=== PATIENT | male | born 1965 | race Caucasian/White ===

== ENCOUNTER 2020-10-01 08:21 | Observation (INO) | payer OTHER, SELFPAY ==
[2020-10-01] VITALS (15 sets, daily range): BP systolic 166–237; BP diastolic 83–108; PULSE 67–85; RESP 14–20; TEMP 36.4–36.9; O2SAT 94–100
--- NOTE | ~2020-10-01 | XR_ITS ---
EXAMINATION: XR chest 2V DATE: 10/01/2020 09:03 INDICATION: Chest tightness. TECHNIQUE: Frontal and lateral views of the chest were obtained. COMPARISON: Chest 2 views 10/26/2007 FINDINGS: The chest demonstrates clear lungs without pneumonia, pleural effusion, or pneumothorax. Th e heart size is normal. IMPRESSION: 1. No acute cardiopulmonary disease. Reviewed, dictated and finalized at location A.
--- NOTE | 2020-10-01 08:25 | ECG_ITS ---
Measurements Intervals [place] Rate: 89 P: 50 DE: 174 QRS: 55 QRSD: 98 T: 11 QT: 349 QTc: 425 Interpretive Statements SINUS RHYTHM POSSIBLE LEFT ATRIAL ENLARGEMENT CONSIDER INFERIOR INFARCT, AGE INDETERMINATE BASELINE ARTIFACT- I, II, III, AVR, AVL, AVF, V1-V6 ABNORMAL ECG Electronically Signed On 10-01-2020 8:41:03 CDT by Alex Richards D.O.
[2020-10-01 08:44] LABS: Basophils Percent Auto 0.5 % (0.2-1.2); Eosinophils Absolute Auto 0.2 K/mm3 (0-0.3); Eosinophils Percent Auto 1.9 % (0-4.4); Hematocrit 52.5 % (42.0-52.0); Hemoglobin 17.9 g/dL (14.0-18.0); Immature Granulocyte Absolute 0.04 K/mm3 (0.00-0.031); Immature Granulocyte Percent A 0.5 % (0-0.5); Lymphocytes Absolute Auto 2.56 K/mm3 (0.9-3.2); Mean Corpuscular HGB Conc 34.1 g/dl (32-36); Mean Corpuscular Hemoglobin 30.3 pg (26-34); Mean Platelet Volume 12.2 fl (7.4-10.4); Monocytes Absolute Auto 0.7 K/mm3 (0.1-0.6); Monocytes Percent Auto 8.3 % (2.6-8.5); Neutrophils Percent Auto 58.8 % (45.5-73.1); Platelet Count Result 88 k/mm3 (150-375); Red Cell Distribution Width 13.6 % (11.5-14.5); White Blood Count 8.5 K/mm3 (4.5-10.0)
[2020-10-01] MEDS: ASPIRIN 81 MG CHEWABLE TABLET 324 MG PO (08:49)
[2020-10-01 08:56] LABS: INR 1.1; Prothrombin Time 14.3 Seconds (11.1-14.7)
[2020-10-01 08:57] LABS: Anion Gap 12 mmol/L (8-16); Blood Urea Nitrogen 16 mg/dL (9-20); Calcium 9.8 mg/dL (8.4-10.2); Carbon Dioxide 25 mmol/L (22-30); Chloride 105 mmol/L (98-107); Estimated CRCL calculation 106 ml/min; Estimated Glomerular Filt Rate > 60; Glucose 172 mg/dL (75-110); Partial Thromboplastin Time 24.8 SECONDS (22.3-36.8); Potassium 4.1 mmol/L (3.4-5.0); Sodium 142 mmol/L (137-145)
[2020-10-01 09:08] LABS: Troponin I 0.016 ng/mL (0.000-0.034)
[2020-10-01] MEDS: hydrALAZINE HCL 20 MG/ML VIAL 10 MG IV PUSH ×3 (09:13→19:47)
--- NOTE | 2020-10-01 09:33 | ED.CHESTPAIN ---
HPI - Chest Pain General Chief Complaint: Chest Pain Stated Complaint: tightness in chest Time Seen by Provider: 10/01/20 08:26 History of Present Illness HPI narrative: Patient is a 55-year-old male with history of coronary artery disease who does not see a doctor that presents the ER with chest pain. Recurrent multiple times over the last 5 days. Last episode was 2 days ago. Reports when he physically exerts himself he starts having central chest pressure. If he stops what he is doing it will only last for 15 additional minutes. Since his last episode he has just been laying around at home in order to prevent recurrence. Denies fevers or chills or sweats. No shortness of breath. He underwent coronary stenting 8 years ago at [facility]. Related Data Home Medications Medication Instructions Recorded Confirmed No Home Medications 10/01/20 10/01/20 Allergies Allergy/AdvReac Type Severity Reaction Status Date / Time No Known Allergies Allergy Verified 10/01/20 08:43 Review of Systems Review of Systems: All systems reviewed & are unremarkable except as noted in HPI and below Constitutional: Constitutional: Denies chills, Denies fever(s) and Denies weakness Cardiovascular: Cardiovascular: Reports chest pain, Denies rapid heart rate and Denies radiating jaw, neck or arm pain Respiratory: Respiratory: Denies cough, Denies dyspnea and Denies wheezing Gastrointestinal: Gastrointestinal: Denies abdominal pain, Denies nausea and Denies vomiting PMF Past Medical History Medical History (Updated 10/01/20 @ 19:01 by Breezy Jasso MD) Coronary artery disease Hypertension Surgical History Surgical History (Updated 10/01/20 @ 09:35 by Breezy Jasso MD) History of percutaneous coronary intervention Family History Family History (Updated 10/01/20 @ 11:12 by Bebeto Gonzalez RN) Father Hypertension Mother Hypertension Social History Social History (Updated 10/01/20 @ 12:48 by Jovi Hammond MD) Social History: Smokes 1 pack a day past 30 years. He smokes marijuana as well. He denies IV drug use. He drinks 24 alcoholic drinks mostly on the weekends for most weekends. Lives at home with his and 3 children. He is a full code He nominates his to be the individual who would make medical decisions for him if he is unable. Smoking packs per day: 1 Smoking cigarettes per day: 20.0 Years smoked: 20 Smoking pack-years: 20.00 Smoking status: Heavy tobacco smoker Tobacco type: cigarettes Alcohol intake: current Drinks per week: 20 Substance use: current Substance use type: marijuana Gender identity (if verbalized by the patient): Male Spiritual care concerns: No Exam Narrative: Exam Narrative: GENERAL: Well-appearing, well-nourished, and in no acute distress. HEAD: Normocephalic, atraumatic. EYES: PERRL and EOMI. ENT: Mucous membranes moist. CHEST: Clear to auscultation. No respiratory distress. HEART: Regular rate and rhythm. Normal peripheral pulses. ABDOMEN: Soft, nontender, nondistended. EXTREMITIES: Normal range of motion. No edema. SKIN: Warm, dry, no rash. NEURO: Alert and oriented x3. PSYCH: Normal mood and affect. Course Course Emergency Course: Admit to the hospitalist service with cardiology consultation. Concern for angina as well as uncontrolled hypertension. Patient resting comfortably at this time. Vital Signs Vital signs: Vital Signs Temperature 98 F 10/01/20 08:36 Pulse Rate 83 10/01/20 08:36 Respiratory Rate 15 10/01/20 08:36 Blood Pressure 237/108 H 10/01/20 08:36 Pulse Oximetry 98 10/01/20 08:36 Temperature 97.6 F 10/01/20 16:00 Pulse Rate 79 10/01/20 18:00 Respiratory Rate 20 10/01/20 16:00 Blood Pressure 172/92 H 10/01/20 16:00 Pulse Oximetry 100 10/01/20 16:00 MDM - Chest Pain Lab Data Result diagrams: 10/01/20 08:37 10/01/20 08:37 Labs: Lab Results
[2020-10-01] MEDS: METOPROLOL TARTRATE 25 MG TABLET PO ×2 (10:03→21:18)
--- NOTE | 2020-10-01 11:00 | PC.NURSE ---
notified of patient's BP on arrival to ICU
--- NOTE | 2020-10-01 11:15 | ADMGEN ---
This patient, Daryl Stevens, was admitted to Intensive Care Unit-5. Patient/family oriented to hospital policies and general routines including ID bracelet, bed and alarms, visiting hours, pain management, procedures, bathroom and other care routines, personal items, smoking policy, room service/diet, and visiting hours. Information on how to activate the Rapid Response Team has been discussed. Patient/Family are encouraged to report perceived risks to care and to ask questions if they do not understand what they are told or what they should do.
--- NOTE | 2020-10-01 11:39 | PM.IMHP ---
H&P: HPI History of Present Illness Date/Time: PATIENT ADMITTED UNDER OBSERVATION 10/01/20 11:39 Chief Complaint: Chest pain Narrative: 55yo male with untreated HTN and CAD presents to ED with complaints of chest pain. Patient states a couple of weeks ago while at work he developed chest pain. He was out working in the heat. He works with concrete as a labor. After resting for short period time, he was able to return to work without recurrence of the pain. There was no shortness of breath or nausea. He has been working since that time and has not had recurrence of the chest pain. About 5 days ago patient the recurrence of the chest pain that was very similar to the original event. He was working on his camper at that time. Again he took a break and then return to working on a camper without recurrence of the discomfort. Chest pain recurred again 2 days ago with similar presentation. He describes the chest pain as a tightness across his chest along the middle of his chest lasting about 15 minutes. There is no radiation of the pain. No shortness of breath or nausea. The chest pain that occurred over the past few days was was not as severe as it was when he was working. He has a history of hypertension that is longstanding. Has a history of coronary disease with 2 stents placed 8-10 years ago. He was on blood thinners for few months after the stents placed but he stopped them on his own accord because of bruising and bleeding. He stopped the antihypertensive medications 5 years ago mostly due to the fact he did not want take any medications any longer. There were no side effects or other issues with medications. He does not recall the names of the medications. Also of note patient had COVID 2 months ago. He had anosmia and dysgeusia but no other significant symptoms otherwise per patient. He has not been vaccinated. He last saw his physician 8 years ago. He does not check his blood pressure at home. He denies any fever or chills. He has been having blurry vision in the morning over the past few weeks. his last eye exam was 2 years ago. He does not have glaucoma or cataracts. He does snore but denies that he has apneic spells. Denies any palpitations. No weight changes. No numbness, tingling or weakness in his extremities. He denies any GI or symptoms. He presented to the emergency room because he was concerned about the chest pain over the past few days but denies having chest pain on the day of presentation. In the emergency room, his blood pressure was 237/108. He was given 1 dose of IV hydralazine and 1 dose of oral metoprolol. His troponin was normal. [place] platelet count [place] [address]. No baseline to compare. Glucose was 172 otherwise basic metabolic panel normal. EKG showed normal sinus rhythm with nonspecific ST T wave changes with evidence of LVH. Chest x-ray was clear. Patient was admitted for further care. Review of Systems Review of Systems: All systems reviewed & are unremarkable except as noted in HPI and below PMFSH Past Medical History Medical History (Updated 10/01/20 @ 19:01 by Breezy Jasso MD) Coronary artery disease Hypertension Surgical History Surgical History (Updated 10/01/20 @ 09:35 by Breezy Jasso MD) History of percutaneous coronary intervention Family History Family History (Updated 10/01/20 @ 11:12 by Bebeto Gonzalez RN) Father Hypertension Mother Hypertension Social History Social History (Updated 10/01/20 @ 12:48 by Jovi Hammond MD) Social History: Smokes 1 pack a day past 30 years. He smokes marijuana as well. He denies IV drug use. He drinks 24 alcoholic drinks mostly on the weekends for most weekends. Lives at home with his and 3 children. He is a full code He nominates his to be the individual who would make medical decisions for him if he is unable. Smoking packs per day: 1 Smoking cigarettes per day: 20.0 Years smoked: 20
[2020-10-01 11:53] LABS: Troponin I 0.017 ng/mL (0.000-0.034)
--- NOTE | 2020-10-01 13:09 | PC.NURSE ---
notified of current BP.
[2020-10-01] MEDS: SODIUM CHLORIDE 0.9% IV 1,000 ML 100 ML IV CONT (14:11)
[2020-10-01 14:44] LABS: Hemoglobin A1C 6.2 % (<5.7)
[2020-10-01 14:50] LABS: Alanine Aminotransferase 40 U/L (4-50); Albumin Level 4.5 g/dL (3.5-5.1); Alkaline Phosphatase 67 U/L (38-126); Aspartate Amino Transferase 32 U/L (17-59); Bilirubin,Total 0.8 mg/dL (0.2-1.3)
[2020-10-01 14:59] LABS: Troponin I 0.021 ng/mL (0.000-0.034)
[2020-10-01] MEDS: FOLIC ACID 1 MG TABLET PO (15:19)
[2020-10-01] MEDS: THIAMINE HCL 200 MG/2 ML VIAL 100 MG IV PUSH (15:19)
[2020-10-01] MEDS: lisinopriL 20 MG TABLET PO (15:19)
[2020-10-01 16:02] LABS: Folic Acid > 20.0 ng/mL (2.76->20)
[2020-10-01 16:09] LABS: Glucose Point of Care 107 mg/dl (65-105)
--- NOTE | 2020-10-01 16:10 | PC.NURSE ---
Received report from CAESAR Moyer
[2020-10-01 21:19] LABS: Glucose Point of Care 101 mg/dl (65-105)
[2020-10-02] VITALS (11 sets, daily range): BP systolic 147–194; BP diastolic 76–101; PULSE 63–77; RESP 17–19; TEMP 36.2–37; O2SAT 94–100
--- NOTE | 2020-10-02 | ECHO_ITS ---
Patient Info Name: Daryl Stevens Age: 55 years : 1965 Gender: Male Ht: 69 in Wt: 193 lbs BSA: 2.08 m2 HR: 72 bpm BP: 178 / 96 mmHg Heart Rhythm: Sinus Rhythm Technical Quality: Good Exam Date: 10/02/2020 12:08 PM Exam Location: [facility] Pulmonary Exam Room: ICU5 Patient Status: Outpatient Admit Date: 10/01/2020 Staff Ordering Physician: Jovi Hammond MD Tube Depatcher: Lavonne Silva RDCS Attending Provider: Jovi Hammond MD Exam Type: CA echo doppler color flow Study Info Indications - CHEST PAIN Complete two-dimensional, color flow and Doppler transthoracic echocardiogram is performed. Summary 1. Complete two-dimensional, color flow and Doppler transthoracic echocardiogram is performed. 2. Left ventricular systolic function is normal, estimated at 60-65%. 3. There is moderately increased left ventricular wall thickness. 4. The left ventricular diastolic function is grade I diastolic dysfunction. 5. Right atrial chamber dimension is mildly enlarged. 6. There is no aortic valve stenosis. 7. There is trace mitral valve regurgitation. 8. There is trace tricuspid valve regurgitation. 9. No pulmonary hypertension, estimated pulmonary arterial systolic pressure is 23 mmHg. Left Ventricle Left ventricular chamber dimension is normal. Left ventricular systolic function is normal, estimated at 60-65%. There is moderately increased left ventricular wall thickness. The left ventricular diastolic function is grade I diastolic dysfunction. Right Ventricle Right ventricular chamber dimension is normal. Right ventricular systolic function is normal. Left Atria Left atrial chamber dimension is normal. Right Atria Right atrial chamber dimension is mildly enlarged. Aortic Valve The aortic valve is trileaflet. There is no aortic valve stenosis. There is trace aortic valve regurgitation. Pulmonic Valve The pulmonic valve is not well visualized. Mitral Valve The mitral valve has normal leaflets. There is trace mitral valve regurgitation. Tricuspid Valve The tricuspid valve leaflets are normal. There is trace tricuspid valve regurgitation. No pulmonary hypertension, estimated pulmonary arterial systolic pressure is 23 mmHg. Pericardium/Pleural The pericardium appears normal. There is trivial pericardial effusion. Inferior Vena Cava Normal inferior vena cava with <50% collapse upon inspiration consistent with elevated right atrial pressure, 10 mmHg. Aorta The aortic root size at the sinus of Valsalva is normal. There is mild aortic atherosclerosis. Left Ventricular Outflow Tract Name Value Normal LVOT 2D LVOT Diameter 2.1 cm LVOT Doppler LVOT Peak Gradient 4 mmHg LVOT Mean Gradient 3 mmHg LVOT VTI 24 cm LVOT VTI/AV VTI Ratio 0.9 LVOT Stroke Volume 80 ml LVOT CO 15.8 l/min LVOT CI 7.6 l/min/m2 Pulmonic Valve
[2020-10-02] MEDS: SODIUM CHLORIDE 0.9% IV 1,000 ML 100 ML IV CONT (00:27)
[2020-10-02] MEDS: hydrALAZINE HCL 20 MG/ML VIAL 10 MG IV PUSH (01:53)
[2020-10-02 06:08] LABS: Basophils Percent Auto 0.2 % (0.2-1.2); Eosinophils Absolute Auto 0.1 K/mm3 (0-0.3); Eosinophils Percent Auto 1.3 % (0-4.4); Hematocrit 52.8 % (42.0-52.0); Hemoglobin 17.8 g/dL (14.0-18.0); Immature Granulocyte Absolute 0.06 K/mm3 (0.00-0.031); Immature Granulocyte Percent A 0.5 % (0-0.5); Immature Platelet Fraction Pct 9.4 % (0.9-11.2); Lymphocytes Percent Auto 22.5 % (18.3-44.2); Mean Corpuscular HGB Conc 33.7 g/dl (32-36); Monocytes Absolute Auto 0.8 K/mm3 (0.1-0.6); Monocytes Percent Auto 7.1 % (2.6-8.5); Neutrophils Absolute Auto 7.6 K/mm3 (1.3-6.7); Neutrophils Percent Auto 68.4 % (45.5-73.1); Platelet Count Result 81 k/mm3 (150-375); Red Blood Count 5.93 M/mm3 (4.6-6.20); White Blood Count 11.1 K/mm3 (4.5-10.0)
[2020-10-02 06:22] LABS: Alanine Aminotransferase 38 U/L (4-50); Albumin Level 4.2 g/dL (3.5-5.1); Alkaline Phosphatase 68 U/L (38-126); Anion Gap 10 mmol/L (8-16); Aspartate Amino Transferase 32 U/L (17-59); Bilirubin,Total 1.3 mg/dL (0.2-1.3); Blood Urea Nitrogen 14 mg/dL (9-20); Calcium 9.1 mg/dL (8.4-10.2); Carbon Dioxide 21 mmol/L (22-30); Chloride 107 mmol/L (98-107); Cholesterol 244 mg/dL (0-200); Estimated CRCL calculation 93 ml/min; Estimated Glomerular Filt Rate > 60; Glucose 126 mg/dL (75-110); HDL Direct 39 mg/dL; Sodium 138 mmol/L (137-145); Triglycerides 136 mg/dL (<150)
[2020-10-02 06:27] LABS: Troponin I 0.022 ng/mL (0.000-0.034)
[2020-10-02 06:35] LABS: LDL Cholesterol Direct 152 mg/dL
[2020-10-02 07:46] LABS: Glucose Point of Care 129 mg/dl (65-105)
--- NOTE | 2020-10-02 10:40 | PC.NURSE ---
Dr. Hammond at bedside. Stress test cancelled per patient request. Metoprolol dose changed, ECHO to be completed today prior to patient discharge. discharged.
[2020-10-02] MEDS: METOPROLOL SUCCINATE EXT REL 50 MG TABCR PO (10:58)
[2020-10-02] MEDS: lisinopriL 20 MG TABLET PO (10:58)
[2020-10-02] MEDS: FOLIC ACID 1 MG TABLET PO (10:58)
[2020-10-02] MEDS: THIAMINE HCL 200 MG/2 ML VIAL 100 MG IV PUSH (11:00)
[2020-10-02 11:54] LABS: Glucose Point of Care 105 mg/dl (65-105)
--- NOTE | 2020-10-02 13:09 | PM.DS ---
DS: Admitting Diagnosis Admitting Diagnosis Admitting Diagnosis: Chest pain DS: Discharge Diagnosis Discharge Diagnosis (1) Hypertensive urgency: Code(s): I16.0 - Hypertensive urgency Status: Acute (2) Coronary artery disease: Code(s): I25.10 - Atherosclerotic heart disease of [place] coronary artery without angina pectoris Status: Inactive (3) Chest pain: Code(s): R07.9 - Chest pain, unspecified Status: Acute (4) Alcohol abuse: Code(s): F10.10 - Alcohol abuse, uncomplicated Status: Acute (5) Tobacco abuse: Code(s): Z72.0 - Tobacco use Status: Acute (6) Hyperglycemia: Code(s): R73.9 - Hyperglycemia, unspecified Status: Acute (7) Thrombocytopenia: Code(s): D69.6 - Thrombocytopenia, unspecified Status: Acute DS: Summary Hospital Course Reason for hospitalization: 55yo male with untreated HTN and CAD presents to ED with complaints of chest pain. Please see H&P for details. Hospital Course: Patient presents to the ED with complaints of chest pain. In the emergency room, his blood pressure was 237/108. He was given 1 dose of IV hydralazine and 1 dose of oral metoprolol. His troponin was normal. [place] [address]. No baseline to compare. Glucose was 172 otherwise basic metabolic panel normal. EKG showed normal sinus rhythm with nonspecific ST T wave changes with evidence of LVH. Chest x-ray was clear. He does drink excessive amounts of alcohol and does smoke tobacco and marijuana. Patient was advised about the benefits of leading a healthy lifestyle. For the elevated BP, he was given hydralazine IV and started on Metoprolol and Lisinopril. SBP dropped into the 170-180 range. Explained to the patient that we will keep his BP at this range initially but will need tighter control after he sees his doctor. Recommend that he arrange for a follow up with a primary care provider. His is working on this per patient. For the polycythemia, he did have an apnea link but that was normal. Erythropotein and CANDIS level pending. He was educated about the benefits of abstaining from tobacco, marijuana and alcohol use. We started thiamine and folate. Librium was available as needed for signs or symptoms of withdrawal but he did not require this. He was monitored with the CIWA protocol. TSH nomral. Lipid panel showing TC 244, LDL 152 and HDL 39. TG 136. Lipitor started at discharge. LFTs normal and hemoglobin A1c 6.2. B12 normal. Plt count 88K. Etiology of the low platelet count is unclear but consider MDS. Chest pain has been occurring off/on for a few weeks. It was felt chest pain related to the markedly elevated blood pressure but could also be related to heat exhaustion. Stress test ordered but patient refused and requesting discharge. He stayed to have Echo but was insistent in leaving. Dietary info given. Patient overall did well and was able to be discharged home on 10/02/2020. Status at Discharge Cognitive/behavioral status at discharge: Stable Time Spent with Patient Time attestation: Total time spent providing and/or coordinating discharge services: 40 minutes Time spent: Greater than 30 minutes Exam Narrative: Exam Narrative: AF 97.1 183/101 71 17 97% ra Gen - NARD Chest - lungs are clear to auscultation bilaterally. CV - RRR S1/S2; Tele showing no significant dysrhythmias Abd - abdomen was soft. Nontender. Nondistended. Positive bowel sounds. Ext - no pedal edema. Psych - normal mood but anxious affect. Skin - warm and dry. DS: Data Data Completed and Pending Labs on day of discharge: Labs from last 24 hours 10/02/20 10/02/20 10/02/20 11:49 07:45 05:58 WBC RBC Hgb Hct MCV MCH MCHC RDW Plt Count MPV Immature Gran % (Auto) Neut % (Auto) Lymph % (Auto) [place] % (Auto) Eos % (Auto) Baso % (Auto) Lymph # (Auto) [place] # (Auto) Eos
[2020-10-04 21:03] LABS: Erythropoietin (EPO) 6.6 mIU/mL (2.6-18.5)
[2020-10-09 15:50] LABS: CALR Exon 9 Mutation Not Detected (Not Detected); CSF3R Exon 14/17 Mutation Not Detected (Not Detected); JAK2 Exon 12 Mutation Not Detected (Not Detected); JAK2 V617F Mutation Not Detected (Not Detected); MPL Exon 10 Mutation Not Detected (Not Detected)
== END 2020-10-02 13:54 | disposition home or self-care (01) ==
LOC: ANHED 09:11 → ANHICU 10:35
PROVIDERS: Admitting Provider Internal Medicine; Emergency Provider Emergency Medicine; Visit Provider Internal Medicine
DX: I16.0 Hypertensive urgency (principal); I25.10 Atherosclerotic heart disease of native coronary artery without angina pectoris; R07.9 Chest pain, unspecified; I10 Essential (primary) hypertension; D69.6 Thrombocytopenia, unspecified; R73.9 Hyperglycemia, unspecified; F17.210 Nicotine dependence, cigarettes, uncomplicated; F10.10 Alcohol abuse, uncomplicated; Z95.5 Presence of coronary angioplasty implant and graft; Z86.16 Personal history of COVID-19
CPT/HCPCS: 36415; 71046; 80048; 80053; 80061; 80076; 81219; 81270; 81402; 81403; 81479; 82607; 82668; 82746; 82948; 83036; 84443; 84484; 85025; 85055; 85610; 85730; 93005; 93306; 94762; 96361; 96374; 96375; 96376; 99285; A9270; G0378; G0379; J0360; J3411; J7030

== ENCOUNTER 2020-12-03 08:48 | Outpatient (CLI) | payer OTHER, SELFPAY ==
--- NOTE | ~2020-12-03 | US_ITS ---
EXAMINATION: US abdomen complete DATE: 12/03/2020 09:29 INDICATION: Other secondary thrombocytopenia TECHNIQUE: Multiple grayscale and Doppler ultrasound images of the abdomen were obtained. COMPARISON: None available FINDINGS: The head and body of the pancreas are normal. The pancreatic tail is obscured by bowel gas. The liver is normal with normal echogenicity and echotexture. No surface nodularity. Normal hepatope jesus flow in the main portal vein. The gallbladder is normal with no abnormal wall thickening, [place] lecystic fluid or stones. The normal common bile duct measures 3 mm. There was no sonographic Colon sign. The visualized portions of the aorta and inferior vena cava are normal. The right kidney measures 11.0 x 5.2 x 5.4 cm. The left kidney measures 11.3 x 6.2 x 5.5 cm. The kidn eys demonstrate normal parenchymal echogenicity. There is no hydronephrosis. The spleen is normal in appearance and measures 11.7 cm. IMPRESSION: 1. No sonographic correlate for the patient's symptoms. Reviewed, dictated and finalized at location B.
== END 2020-12-03 08:49 | disposition home or self-care (01) ==
LOC: ANHIMG 08:51
PROVIDERS: Visit Provider Internal Medicine Hematology & Oncology
DX: D69.59 Other secondary thrombocytopenia (principal)
CPT/HCPCS: 76700

== ENCOUNTER 2021-03-13 09:31 | Outpatient (CLI) | payer OTHER, SELFPAY ==
[2021-03-13 09:52] LABS: Basophils Absolute Auto 0.1 K/mm3 (0.0-0.1); Basophils Percent Auto 0.5 % (0.2-1.2); Eosinophils Absolute Auto 0.3 K/mm3 (0-0.3); Eosinophils Percent Auto 2.5 % (0-4.4); Hematocrit 46.9 % (42.0-52.0); Hemoglobin 16.4 g/dL (14.0-18.0); Immature Granulocyte Absolute 0.04 K/mm3 (0.00-0.031); Immature Granulocyte Percent A 0.4 % (0-0.5); Lymphocytes Absolute Auto 4.04 K/mm3 (0.9-3.2); Lymphocytes Percent Auto 38.6 % (18.3-44.2); Mean Corpuscular Hemoglobin 30.5 pg (26-34); Mean Corpuscular Volume 87.3 fl (80-100); Monocytes Absolute Auto 0.8 K/mm3 (0.1-0.6); Monocytes Percent Auto 7.4 % (2.6-8.5); Neutrophils Absolute Auto 5.3 K/mm3 (1.3-6.7); Neutrophils Percent Auto 50.6 % (45.5-73.1); Platelet Count Result 124 k/mm3 (150-375); Red Blood Count 5.37 M/mm3 (4.6-6.20); Red Cell Distribution Width 12.5 % (11.5-14.5); White Blood Count 10.5 K/mm3 (4.5-10.0)
[2021-03-18 15:30] LABS: Reference Lab Test Result Negative
== END 2021-03-13 09:32 | disposition home or self-care (01) ==
LOC: ANHLAB 09:36
PROVIDERS: Visit Provider Internal Medicine Hematology & Oncology
DX: D69.59 Other secondary thrombocytopenia (principal)
CPT/HCPCS: 36415; 85025; 86023

== ENCOUNTER 2021-12-25 11:55 | Outpatient (CLI) | payer OTHER, SELFPAY ==
[2021-12-25 12:07] LABS: Hemoglobin 16.4 g/dL (14.0-18.0); Mean Corpuscular HGB Conc 34.9 g/dl (32-36); Mean Corpuscular Hemoglobin 30.3 pg (26-34); Mean Corpuscular Volume 86.9 fl (80-100); Red Blood Count 5.41 M/mm3 (4.6-6.20); Red Cell Distribution Width 12.8 % (11.5-14.5); White Blood Count 8.3 K/mm3 (4.5-10.0)
[2021-12-25 12:19] LABS: Platelet Count Result 102 k/mm3 (150-375)
== END 2021-12-25 11:56 | disposition home or self-care (01) ==
LOC: ANHLAB 11:57
PROVIDERS: Visit Provider Internal Medicine Hematology & Oncology
DX: D75.1 Secondary polycythemia (principal)
CPT/HCPCS: 36415; 85027

== ENCOUNTER 2024-02-16 09:22 | Emergency (ER) | payer SELFPAY ==
[2024-02-16 09:27] VITALS: BP 219/102; PULSE 81; RESP 20; TEMP 36.6; O2SAT 97
--- NOTE | 2024-02-16 09:29 | ED.EYEPROB ---
HPI - Eye Problem General Chief complaint: Eye Problems Stated complaint: motor oil in R eye yesterday Time Seen by Provider: 02/16/24 09:25 Source: patient Mode of arrival: ambulatory Limitations: no limitations History of Present Illness HPI Narrative: This is a 58-year-old male who presents to the ED for chief complaint of right eye irritation after accidentally being exposed to motor or ill yesterday. Patient works as a line mechanic. States that yesterday he wiped his eye with his right hand and has had irritation of this I ever since. He feels is likely due to the motor or oil. States that he tried to flush the eye several times yesterday with minimal relief. States that the right eye has been red and irritated with photophobia today. Reports blurred vision. Denies any left-sided symptoms. Related Data Allergies Allergy/AdvReac Type Severity Reaction Status Date / Time No Known Allergies Allergy Verified 02/16/24 09:22 Review of Systems Review of Systems: All systems as dictated in HPI PMFSH Past Medical History Medical History (Updated 02/16/24 @ 10:17 by Adolfo Reilly PA-C) Coronary artery disease Hypertension Surgical History Surgical History (Updated 10/01/20 @ 09:35 by Breezy Jasso MD) History of percutaneous coronary intervention Family History Family History (Updated 10/01/20 @ 11:12 by Bebeto Gonzalez RN) Father Hypertension Mother Hypertension Social History Social History (Updated 10/01/20 @ 12:48 by Jovi Hammond MD) Social History: Smokes 1 pack a day past 30 years. He smokes marijuana as well. He denies IV drug use. He drinks 24 alcoholic drinks mostly on the weekends for most weekends. Lives at home with his and 3 children. He is a full code He nominates his to be the individual who would make medical decisions for him if he is unable. Smoking packs per day: 1 Smoking cigarettes per day: 20.0 Years smoked: 20 Smoking pack-years: 20.00 Smoking status: Heavy tobacco smoker Tobacco type: cigarettes Alcohol intake: current Drinks per week: 20 Substance use: current Substance use type: marijuana Gender identity (if verbalized by the patient): Male Spiritual care concerns: No Exam Narrative: GENERAL: Well-appearing, well-nourished, and in no acute distress. HEAD: Normocephalic, atraumatic. EYES: PERRLA and EOMI. Right eye: Conjunctiva injected. No drainage. Wood's lamp exam reveals central corneal abrasion. No evidence of ulceration. Normal pressures bilaterally Left eye: Benign ENT: Nares clear, no rhinorrhea or epistaxis. Mucous membranes moist. Oropharynx without tonsillar hypertrophy exudate or other lesions. NECK: Supple. No adenopathy or masses. CHEST: No respiratory distress. Clear to auscultation. No wheezes rales or rhonchi HEART: Regular rate and rhythm. No murmur heard. Normal peripheral pulses. ABDOMEN: Soft, nontender, nondistended, normal active bowel sounds. MSK: Normal range of motion. No edema. SKIN: Warm, dry, no rash. NEURO: Alert and oriented x4. No focal deficits. PSYCH: Normal mood and affect. Course Vital Signs Vital signs: Vital Signs Temperature 97.9 F 02/16/24 09:27 Pulse Rate 81 02/16/24 09:27 Respiratory Rate 20 02/16/24 09:27 Blood Pressure 219/102 H 02/16/24 09:27 Pulse Oximetry 97 02/16/24 09:27 Oxygen Delivery Room Air 02/16/24 09:27 Temperature 98 F 02/16/24 10:31 Pulse Rate 84 02/16/24 10:31 Respiratory Rate 16 02/16/24 10:31 Blood Pressure 207/94 H 02/16/24 10:31 Pulse Oximetry 98 02/16/24 10:31 Oxygen Delivery Room Air 02/16/24 09:27 MDM - Eye Problem MDM Narrative Medical decision making narrative: This is a 58-year-old male who presents to the ED for chief complaint right eye irritation after possible injury yesterday. Vitals show elevated blood pressure but otherwise normal. Exam reveals erythematous/injected conjunctivae on the right side. There is mild yellow drainage. No foreign bodies noted. Wood's lamp exam notes a corneal abrasion present. No evidence of ulceration. He did have immediate relief with topical tetracaine. Ofloxacin drops were prescribed. Encouraged follow-up with [facility] Pt will be discharged in stable condition. Return precautions given and supportive measures discussed. Pt is understanding and agreeable with plan for discharge and follow-up with PCP. Discharge Plan Discharge Clinical Impression: Corneal abrasion Patient Disposition: Home, Self-Care Condition: Stable Instructions: Antibiotic Form Additional Instructions: Exam today shows scratch of the surface of the eye. Please use drops as prescribed and follow-up with [facility] for re check. If you have any new or worsening symptoms please return to the ER for further evaluation. Prescriptions: New Artificial Tears (cmc) 1 % drops 1 drp RIGHT EYE 4-6XD PRN (Reason: dry eye(s)) Qty: 15 0RF ofloxacin 0.3 % drops See Rx Instructions .ROUTE .COMPLEX Qty: 5 0RF Rx Instructions: put 1-2 drps into affected eye(s) every 2-4 h x 2 days, then 1-2 drps 4 times/day days 3-7 No Action folic acid 1 mg Tablet 1 mg PO DAILY Qty: 30 2RF lisinopril 20 mg Tablet 20 mg PO QAM Qty: 30 2RF metoprolol succinate 50 mg Tablet Extended Release 24 Hr 50 mg PO QAM Qty: 30 2RF aspirin 81 mg tablet,chewable 81 mg PO DAILY Qty: 30 2RF atorvastatin [Lipitor] 20 mg tablet 20 mg PO HS Qty: 30 2RF thiamine HCl (vitamin B1) 100 mg tablet 100 mg PO DAILY Qty: 30 2RF Follow-up/Referrals: UNKNOWN,DOCTOR [Primary Care Provider] - Time of Disposition: 10:19
[2024-02-16] MEDS: FLUORESCEIN SOD 1 MG/STRIP EACH EYE (10:28)
[2024-02-16] MEDS: TETRACAINE HCL 0.5% OPHTH SOLN 4 ML BTL 1 DROP EACH EYE (10:28)
--- NOTE | 2024-02-16 10:28 | PC.NURSE ---
Eye drops and flouristrips administered by EDP
[2024-02-16 10:31] VITALS: BP 207/94; PULSE 84; RESP 16; TEMP 36.6; O2SAT 98
== END 2024-02-16 10:32 | disposition home or self-care (01) ==
PROVIDERS: Emergency Provider Physician Assistant
DX: S05.01XA Injury of conjunctiva and corneal abrasion without foreign body, right eye, initial encounter (principal); X58.XXXA Exposure to other specified factors, initial encounter; I25.10 Atherosclerotic heart disease of native coronary artery without angina pectoris; I10 Essential (primary) hypertension; F17.210 Nicotine dependence, cigarettes, uncomplicated
CPT/HCPCS: 99283